=== PATIENT | female | born 1995 | race Two or more races ===

== ENCOUNTER → 2022-11-26 | Outpatient (CLI) | payer BC ==
[2022-11-26 09:30] LABS: Basophils # (auto) 0 10 ^3/uL (0-0.2); Basophils % (auto) 0.4 % (0.0-2.0); Eosinophils # (auto) 0.1 10 ^3/uL (0-0.8); Eosinophils % (auto) 1.5 % (0.0-7.0); Hematocrit 37.4 % (36.0-46.0); Hemoglobin 13.1 g/dL (12.2-16.2); Lymphocytes # (auto) 1.2 10 ^3/uL (0.4-5.4); Lymphocytes % (auto) 15.7 % (10.0-50.0); Mean Corpuscular Hemoglobin 33.2 pg (28.0-32.0); Mean Corpuscular Hgb Conc. 35.1 g/dL (32.0-36.0); Mean Corpuscular Volume 94.6 fL (80.0-100.0); Monocytes # (auto) 0.6 10 ^3/uL (0-1.3); Monocytes % (auto) 8.1 % (0.0-12.0); Neutrophils # (auto) 5.6 10 ^3/uL (1.6-8.6); Neutrophils % (auto) 74.3 % (37.0-80.0); Nucleated Red Blood Cells % 0.1 %; Red Blood Cells 3.96 10^6/uL (4.0-5.20); Red Cell Distribution Width 13.8 % (11.8-14.3); White Blood Cell 7.6 10^3/uL (4.4-10.8)
== END | disposition home or self-care (01) ==
LOC: LAB 09:07
PROVIDERS: ATTEND Obstetrics & Gynecology
DX: O99.810 Abnormal glucose complicating pregnancy (principal); Z3A.00 Weeks of gestation of pregnancy not specified
CPT/HCPCS: 36415; 83036; 84112; 85025

== ENCOUNTER 2022-12-27 11:17 | Observation (INO) | payer BC ==
[2022-12-27] MEDS ORDERED: PREN-96 PO (13:15)
[2022-12-27 13:35] LABS: Urine Amorphous Crystal MOD /hpf (None Seen); Urine Bacteria NONE SEEN /hpf (None Seen); Urine Blood Negative /uL (Negative); Urine Specific Gravity 1.016 (1.001-1.035); Urine WBC 2 /hpf (0 - 5)
== END 2022-12-27 13:26 | disposition home or self-care (01) ==
LOC: LDRP 11:17 → UNDOADMOB 11:17 → LDRP 11:58
PROVIDERS: ADMIT Obstetrics & Gynecology; ATTEND Obstetrics & Gynecology
DX: O48.0 Post-term pregnancy (principal); O62.9 Abnormality of forces of labor, unspecified; Z3A.40 40 weeks gestation of pregnancy; Z91.040 Latex allergy status
CPT/HCPCS: 59025; 76818; 81001; 81002; 94760; G0378

== ENCOUNTER 2022-12-29 10:58 | Observation (INO) | payer BC ==
[~2022-12-29 10:58] MED LIST: PREN-96 PO
== END 2022-12-29 16:26 | disposition home or self-care (01) ==
LOC: UNDOADMOB 10:58 → LDRP 10:58 → UNDODISOB 16:26
PROVIDERS: ADMIT Obstetrics & Gynecology; ATTEND Obstetrics & Gynecology
DX: O62.9 Abnormality of forces of labor, unspecified (principal); O48.0 Post-term pregnancy; Z3A.40 40 weeks gestation of pregnancy; Z79.899 Other long term (current) drug therapy
CPT/HCPCS: 59025; 76818; 81002; 82948; 94760; G0378

== ENCOUNTER 2022-12-30 09:10 | Inpatient (IN) | payer BC ==
[~2022-12-30] VITALS: Ht 160 cm; Wt 68.0 kg
[2022-12-30] MEDS ORDERED: PROMETHAZINE HCL 25 MG/ML 1ML IV PRN (09:45)
[2022-12-30] MEDS ORDERED: WITCH HAZEL-GLYCERIN PAD TOP PRN (09:45)
[2022-12-30] MEDS ORDERED: LIDOCAINE 2%HCL (LOCAL ANESTH.) INJ 20ML MDV IJ PRN (09:45)
[2022-12-30] MEDS ORDERED: DERMOPLAST 60ML BOTTLE TOP PRN (09:45)
[2022-12-30] MEDS ORDERED: LACT. RINGERS/OXYTOCIN 20UNITS 500 ML IV ONE ×2 (09:45→10:15)
[2022-12-30] MEDS ORDERED: BUTORPHANOL TARTRATE 2 MG/1 ML VIAL IV PRN ×2 (09:45)
[2022-12-30] MEDS ORDERED: PHISODERM TOP SOLN 240ML BTL TOP PRN (09:45)
[2022-12-30] MEDS ORDERED: LACTATED RINGER'S 1,000 ML IV SCH (09:45)
[2022-12-30 11:03] LABS: Urine Bacteria NONE SEEN /hpf (None Seen); Urine Blood 3+ /uL (Negative); Urine Mucus FEW (None Seen); Urine Specific Gravity 1.023 (1.001-1.035); Urine WBC 90 /hpf (0 - 5)
[2022-12-30 11:05] LABS: Albumin 2.6 g/dL (3.4-5.0); Basophils # (auto) 0 10 ^3/uL (0-0.2); Basophils % (auto) 0.1 % (0.0-2.0); Calcium 8.7 mg/dL (8.5-10.1); Eosinophils # (auto) 0 10 ^3/uL (0-0.8); Eosinophils % (auto) 0.1 % (0.0-7.0); Hematocrit 36.5 % (36.0-46.0); Hemoglobin 12.7 g/dL (12.2-16.2); Lymphocytes # (auto) 0.7 10 ^3/uL (0.4-5.4); Lymphocytes % (auto) 6.1 % (10.0-50.0); Mean Corpuscular Hemoglobin 33.1 pg (28.0-32.0); Mean Corpuscular Hgb Conc. 34.7 g/dL (32.0-36.0); Mean Corpuscular Volume 95.5 fL (80.0-100.0); Monocytes # (auto) 0.3 10 ^3/uL (0-1.3); Monocytes % (auto) 2.7 % (0.0-12.0); Neutrophils # (auto) 10.4 10 ^3/uL (1.6-8.6); Potassium 4.5 mmol/L (3.5-5.1); Red Blood Cells 3.82 10^6/uL (4.0-5.20); Red Cell Distribution Width 14.3 % (11.8-14.3); White Blood Cell 11.4 10^3/uL (4.4-10.8)
[2022-12-30 11:07] LABS: BUN/Creatinine Ratio 17.6
[2022-12-30 11:10] LABS: Bilirubin, Total 0.3 mg/dL (0.2-1.0); Total Protein 6.5 g/dL (6.4-8.2)
[2022-12-30 11:21] LABS: Alcohol, Urine < 3.0 mg/dL (0-10); Amphetamine Screen, Urine NEGATIVE (NEGATIVE); Barbiturate Scree,Urine NEGATIVE (NEGATIVE); Benzodiazephine Screen, Urine NEGATIVE (NEGATIVE); Cannabinoid Screen, Urine NEGATIVE (NEGATIVE); Cocaine Screen, Urine NEGATIVE (NEGATIVE); Opiate Scree,Urine NEGATIVE (NEGATIVE); Phencyclidine Screen, Urine NEGATIVE (NEGATIVE)
[2022-12-30 11:34] LABS: INR 0.84 (0.9-1.15); Partial Thromboplastin Time 28.5 sec (24.6-33.4)
[2022-12-30] MEDS ORDERED: LIDOCAINE 2%HCL (LOCAL ANESTH.) INJ 20ML MDV ONE (18:10)
[2022-12-30] MEDS ORDERED: miSOPROStol 100 mcg TAB SL PRN (18:30)
[2022-12-30] MEDS ORDERED: METHYLERGONOVINE MALEATE 0.2 MG/ML AMP IM PRN (18:30)
[2022-12-30] MEDS ORDERED: ONDANSETRON ODT 4 MG TAB PO PRN (19:15)
[2022-12-30] MEDS ORDERED: IBUPROFEN 800 MG TAB PO PRN (19:15)
[2022-12-30] MEDS ORDERED: ACETAMINOPHEN 325 MG TAB PO PRN (19:15)
[2022-12-30] MEDS ORDERED: DOCUSATE SOD 100 MG CAP PO SCH (22:00)
[2022-12-30 22:46] VITALS: BP 111/70
[2022-12-31 07:00] VITALS: BP 106/63
[2022-12-31 09:07] LABS: RPR Non Reactive (Non Reactive)
[2022-12-31 11:00] VITALS: BP 109/62
[2022-12-31 15:00] VITALS: BP 116/87
[2022-12-31 18:35] VITALS: BP 119/75
[2022-12-31 23:00] VITALS: BP 110/68
[2023-01-01 03:10] VITALS: BP 120/79
[2023-01-01 06:54] VITALS: BP 127/79
[2023-01-01 10:30] VITALS: BP 135/71
== END 2023-01-01 11:10 | disposition home or self-care (01) | DRG 807 ==
LOC: UNDOADMOB 09:10 → LDRP 09:10 → OBSVTOIN 09:35 → INTOOBSV 09:38 → OBSVTOIN 09:38
PROVIDERS: ADMIT Obstetrics & Gynecology; ATTEND Obstetrics & Gynecology
PROC: 10E0XZZ Delivery of Products of Conception, External Approach (ICD-10-PCS; principal; 2022-12-30)
DX: O48.0 Post-term pregnancy (principal); Z37.0 Single live birth; Z3A.40 40 weeks gestation of pregnancy; Z20.822 Contact with and (suspected) exposure to COVID-19
CPT/HCPCS: 36415; 59025; 59409; 80053; 80307; 81001; 85025; 85610; 85730; 86592; 86850; 86900; 86901; 87426; 94760; 96360; 96361; 96365; 96366; A4618; G0378; J2590

== ENCOUNTER 2023-12-26 14:00 | Emergency (ER) | payer BC ==
[~2023-12-26] VITALS: Ht 160 cm; Wt 66.0 kg
[2023-12-26 15:43] VITALS: TEMP 97.3
[2023-12-26] MEDS ORDERED: NAPR-746 PO (15:54)
[2023-12-26 16:05] VITALS: BP 149/90; PULSE 91; RESP 18; O2SAT 97
== END 2023-12-26 16:05 | disposition home or self-care (01) ==
LOC: ER 14:00
DX: M77.8 Other enthesopathies, not elsewhere classified (principal); Z79.899 Other long term (current) drug therapy
CPT/HCPCS: 29125; 73110